=== PATIENT | male | born 1995 | race Two or more races ===

== ENCOUNTER 2018-07-29 17:04 | Emergency (ER) | payer SELFPAY ==
[~2018-07-29] VITALS: Ht 165.1 cm; Wt 61.2 kg
[2018-07-29 17:54] VITALS: BP 131/82
--- NOTE | 2018-07-29 18:08 | PHYS DOC ---
Adult General Chief Complaint Chief Complaint: HAND PROBLEM HPI HPI Patient is a 23 year old male who presents with right hand contusion after punching a card board yesterday. Patient is right-handed. Review of Systems Review of Systems Constitutional: Denies fever or chills [] Musculoskeletal: Reports right hand contusion Integument: Denies rash or skin lesions [] Neurologic: Denies headache, focal weakness or sensory changes [] All other systems were reviewed and found to be within normal limits, except as documented in this note. Current Medications Current Medications Current Medications Medications (Trade) Dose Ordered Sig/Shahram Start Time Stop Time Status Last Admin Dose Admin Diphtheria/ Tetanus/Acell Pertussis (Boostrix) 0.5 ml ONCE ONCE 07/29/18 18:15 07/29/18 19:05 DC 07/29/18 19:08 0.5 ML Allergies Allergies Allergies Coded Allergies Type Severity Reaction Last Updated Verified No Known Drug Allergies 07/29/18 No Physical Exam Physical Exam Constitutional: Well developed, well nourished, no acute distress, non-toxic appearance. [] Skin: Warm, dry, no erythema, no rash. [] Back: No tenderness, no CVA tenderness. [] Extremities: Right hand with no obvious deformity. Soft tissue swelling noted on the dorsal aspect of the right hand with some minor abrasions on the fifth knuckle. Tenderness on palpation along the right hand fifth metacarpal. Full range of motion to the right hand and fingers. Adequate radial medial and ulnar sensation to the right hand. +2 right radial pulse. Cap refill less than 2 seconds the right fingers. Neurologic: Alert and oriented X 3, normal motor function, normal sensory function, no focal deficits noted. [] Psychologic: Affect normal, judgement normal, mood normal. [] Current Patient Data Vital Signs Vital Signs Date Time Temp Pulse Resp B/P (MAP) Pulse Ox O2 Delivery O2 Flow Rate FiO2 07/29/18 17:54 98.9 92 18 131/82 (98) 96 Room Air 98.9 EKG EKG [] Radiology/Procedures Radiology/Procedures [] Course & Med Decision Making Course & Med Decision Making Pertinent Labs and Imaging studies reviewed. (See chart for details) This is a 23-year-old male patient presented to the ED today with right hand contusion after punching a card board. Right hand x-rays interpreted by Dr. Girard were noted for a tiny avulsion fracture on the base of the fifth metacarpal. Patient was placed in ulnar gutter splint by the darkroom technician, neurovascular exam is intact. Tetanus was updated. Instructed to contact the orthopedic doctor provided on Tuesday and set up a follow-up appointment. OTC pain relievers recommended. Staff Physician Addendum: I was working in the ER during the course of this patient's visit. I was available for consultation as needed, but I was not directly involved in the care of this patient. Dragon Disclaimer Dragon Disclaimer This electronic medical record was generated, in whole or in part, using a voice recognition dictation system. Departure Departure Impression: Primary Impression: Metacarpal bone fracture Disposition: HOME, SELF-CARE Condition: STABLE Referrals: NO PCP (PCP) JAILYN BELCHER MD call his office on Tuesday and setup a follow up appointment Patient Instructions: Hand Fracture, Metacarpals Additional Instructions: You have a tiny avulsion fracture on the right hand. You were splinted. Contact the provided orthopedic doctor on Tuesday and set up a follow-up appointment in the clinic. Ice elevate the extremity. Take [id number] pain relievers as needed. Problem Qualifiers Primary Impression: Metacarpal bone fracture Encounter type: initial encounter Metacarpal bone: fifth Fracture type: closed Metacarpal location: base Fracture alignment: nondisplaced Laterality: right Qualified Codes: S62.346A - Nondisplaced fracture of base of fifth metacarpal bone, right hand, initial encounter for closed fracture YOSEPH HAJI APRN Jul 29, 2018 18:08 ASHLEY GIRARD MD Jul 29, 2018 23:26
[2018-07-29] MEDS ORDERED: DIPHTH,PERTUSS(ACELL),TET TOX 0.5 ML DISP.SYRIN. VAX IM ONE (18:15)
--- NOTE | 2018-07-29 18:36 | RAD ---
HAND RIGHT 3V History: Pain with redness and swelling of the fourth and fifth metacarpals Comparison: None. Findings: 3 views of the right hand are submitted. There is apparently small avulsion fracture at the ulnar margin of the proximal fifth metacarpal and also likely fracture at the radial margin of the proximal fourth metacarpal. Impression: 1. There are small fractures of the proximal fourth and fifth metacarpals. Electronically signed by: Nam Flores MD (07/29/2018 6:33 PM) [facility]
== END 2018-07-29 19:30 | disposition home or self-care (01) ==
LOC: ER 17:04
DX: S62.346A Nondisplaced fracture of base of fifth metacarpal bone, right hand, initial encounter for closed fracture (principal); X58.XXXA Exposure to other specified factors, initial encounter; Y93.89 Activity, other specified; Y92.89 Other specified places as the place of occurrence of the external cause; Y99.8 Other external cause status
CPT/HCPCS: 29125; 73130; 90471; 90715; 99284